=== PATIENT | female | born 1940 | race Caucasian/White ===

== ENCOUNTER 2021-11-14 12:03 | Emergency (ER) | payer MEDICARE, SELFPAY ==
[2021-11-14 12:04] VITALS: BP 141/95; PULSE 64; RESP 15; TEMP 35.8; O2SAT 100; BMI 32.8
--- NOTE | 2021-11-14 12:11 | NURSING ---
NO OLD EKGS
--- NOTE | 2021-11-14 12:29 | ED.VIS.CHEST ---
HPI History of Present Illness Chief Complaint: Chest Pain Informant: patient Onset/Context/Timing Onset: Days (3-4) Activity at onset: gradual Timing: Intermittent Quality: Positive for Tightness Location: Substernal, Right Chest and Left Chest Worsened By: Nothing Relieved By: Nothing Associated Symptoms: Positive for Lightheadedness; Negative for Nausea, Vomiting, Diaphoresis, Dyspnea, Cough, Fever, Acid Reflux and Palpitations Narrative Narrative: Patient presents with chest pain that has been intermittent over the last 3 to 4 days. Patient states it feels like a tightness across her chest. Patient states that sometimes it goes across her upper abdomen as well. Patient states nothing makes it better nothing makes it worse. Patient thinks this may be anxiety related to the recent of her . Patient states she has some intermittent lightheadedness. Patient denies any nausea or vomiting. Patient denies any diaphoresis. Patient denies any shortness of breath. [facility] Medical History (Updated 11/14/21 @ 15:[address] David Rojas DO) Hypertension Allergy/AdvReac Type Severity Reaction Status Date / Time No Known Allergies Allergy Verified 11/14/21 12:06 Surgical History (Updated 11/14/21 @ 12:32 by Nestor Ignacio) History of tonsillectomy Hx of cataract surgery Social History Smoking Status: Never smoker ROS ROS ED Constitutional Constitutional ED: Denies chills or fever(s) Eyes Eyes: Denies blurry vision or change in vision ENT ENT ED: Reports rhinorrhea; Denies sore throat Cardiovascular Cardiovascular: Reports chest pain; Denies palpitations Respiratory/Chest Respiratory/Chest: Denies cough or dyspnea Gastrointestinal Gastrointestinal: Reports nausea; Denies abdominal pain or vomiting Genitourinary Genitourinary ED: Denies dysuria or hematuria Musculoskeletal Musculoskeletal: Reports back pain; Denies neck pain Integumentary Denies abscess or rash Neurologic Neurologic: Denies headache(s) or weakness Allergic/Immunologic Allergic/Immunologic ED: Denies mouth swelling or urticaria EXAM Physical Exam Const Vital Signs: 11/14/21 12:04 11/14/21 12:31 11/14/21 12:34 Temperature 96.5 F L 98.4 F Temperature Source Temporal Temporal Pulse Rate 64 57 L Respiratory Rate 15 14 Blood Pressure 141/95 H 154/84 H Blood Pressure Mean 110 107 Pulse Ox 100 98 Oxygen Delivery Method Room Air Room Air Room Air 11/14/21 13:03 11/14/21 14:00 Temperature 98.4 F 98.4 F Temperature Source Temporal Temporal Pulse Rate 62 78 Respiratory Rate 18 12 Blood Pressure 133/92 H 145/92 H Blood Pressure Mean 105 109 Pulse Ox 100 98 Oxygen Delivery Method Room Air Room Air Positive well nourished, well developed and obese General Appearance ED: well developed Nutritional Appearance: obese HEENT normocephalic and atraumatic Eyes PERRL and EOMs intact bilaterally Neck supple and no JVD Chest Wall palpation of chest normal Resp normal respiratory effort and clear to auscultation bilaterally Effort and Inspection: Negative for respiratory distress Cardio regular rate, regular rhythm and no murmurs GI normal to inspection, nondistended, normoactive bowel sounds, soft to palpation, non-tender and non-distended Extremity normal to inspection General Extremety ED: Negative for edema or tenderness General Extremity: Negative for edema Neuro oriented x3, CN's II-XII intact bilaterally and no sensory deficits noted Sensorium / Orientation: awake and alert Motor Exam: strength 5/5 throughout Psych mental status grossly normal Heart Score History: Slightly/Non-Suspicious ECG: Normal Age: >/= 65 years Risk Factors: 1 or 2 Risk Factors Troponin: </= Normal Limit Score: 3 MDM MDM MDM Narrative Medical decision making narrative: EKG was obtained. On my interpretation, it showed a sinus bradycardia with a rate of 57. WI interval, QRS interval, and QTc intervals were all normal. There is left axis deviation at -31. There are no acute ST or T wave changes. Portable 1 view chest x-ray was obtained. On my interpretation, lung feliz are clear. There is normal cardiac silhouette. Bony thorax is normal. There is no acute process noted. Radiologist also interpreted the x-ray and agrees. CBC was obtained and was within normal limits. Basic metabolic profile was essentially within normal limits. Initial high-sensitivity troponin was normal at six. 2-hour repeat high-sensitivity troponin was normal at six. Patient was advised of her findings. Patient has a HEART score of three. Patient was advised that this is low risk for acute cardiac event. Patient was instructed to follow-up with her primary care physician in 5 to 7 days for further evaluation. Patient understood and was agreeable with the plan. All questions were answered. Lab Data Attestation: I reviewed the patient's lab results. Labs: Laboratory Results - last 24 hr 11/14/21 11/14/21 11/14/21 12:35 12:35 14:43 WBC 7.9 RBC 4.58 Hgb 14.6 Hct 43.5 MCV 95.0 MCH 31.9 MCHC 33.6 RDW Std Deviation 44.9 H RDW Coeff of Onur 12.9 Plt Count 307 MPV 9.5 Immature Gran % (Auto) 0.500 Neut % (Auto) 58.8 Lymph % (Auto) 27.9 Crawford % (Auto) 10.0 Eos % (Auto) 2.3 Baso % (Auto) 0.5 Absolute Neuts (auto) 4.6 Absolute Lymphs (auto) 2.20 Nucleated RBC % 0 Sodium 141 Potassium 3.6 Chloride 107 Carbon Dioxide 28.0 Anion Gap 6 BUN 17 Creatinine 1.08 H Estim Creat Clear Calc 34.94 Est GFR (MDRD) Af Amer 63 Est GFR (MDRD) Non-Af 52 L BUN/Creatinine Ratio 15.7 Glucose 97 Calcium 9.3 Troponin I High Sens 6 6 Radiography Chest X-Ray - ED: 1 View, Read by ED Physician, Read by Radiologist and Normal Diagnostic Testing: Clinical Impression(s) from Imaging Studies Chest X-Ray 11/14/21 12:50 IMPRESSION: Hyperinflation. The lungs are clear. Electronically Signed: Shaheen Devries MD at 13:04 EST , EKG Initial EKG: Attestation: I personally reviewed and interpreted this EKG as follows: Interpretation: No Acute Injury Pattern and Sinus Bradycardia (57) Comments: Left axis deviation Discharge Plan Triage Chief Complaint: Chest Pain ED Provider: David Rojas Dx/Rx/DC Orders Clinical Impression: Chest pain Instructions: ED Chest Pain, Uncertain Cause Primary Care Provider: Mony Parra Referrals: Mony Parra MD [Primary Care Provider] - 5-7 Days Disposition Disposition: Home, Self Care
[2021-11-14 12:31] VITALS: BP 154/84; PULSE 57; RESP 14; TEMP 36.9; O2SAT 98
--- NOTE | 2021-11-14 12:34 | EKG12_ITS ---
Test Reason : CHEST PRESSURE Blood Pressure : / mmHG Vent. Rate : 057 BPM Atrial Rate : 057 BPM P-R Int : 174 ms QRS Dur : 094 ms QT Int : 446 ms P-R-T Axes : 048 -31 019 degrees QTc Int : 434 ms Sinus bradycardia Left axis deviation Abnormal ECG Confirmed by CASSIE FERNANDEZ, [place] ([id number]), film and video editor CASEY CHAMPAGNE ([id number]) on 11/18/2021 1:22:43 PM Referred By: SUNIL/JULISA Confirmed By:COURTNEY MATTHEWS MD
[2021-11-14] MEDS: Aspirin 81 MG TAB.CHEW 324 MG PO (12:37)
[2021-11-14 12:44] LABS: Absolute Neutrophil Count 4.6 X10^3/uL (2.0-7.7); Basophil# 0.04 X10^3/uL; Basophil% 0.5 % (0-1); Eosinophil# 0.18 X10^3/uL; Eosinophils% 2.3 % (0-5); Hematocrit 43.5 % (37-47); Hemoglobin 14.6 g/dL (12.0-15.0); Lymphocyte % 27.9 % (19-41); Mean Corp Hgb Conc 33.6 g/dL (32-36); Mean Corpuscular Hgb 31.9 pg (27.0-32.0); Mean Platelet Vol. 9.5 fl (6.2-12.0); Monocyte# 0.79 X10^3/uL; NRBC Flagged by Analyzer 0 % (0-5); Neutrophil # 4.64 X10^3/uL (2.7-7.7); Neutrophil % 58.8 % (47-70); Platelet Count 307 K/mm3 (150-450); RBC Distribution Width CV 12.9 % (11.6-14.6); RBC Distribution Width SD 44.9 fl (35.1-43.9); Red Blood Count 4.58 M/mm3 (4.2-5.4); White Blood Count 7.9 K/mm3 (4.4-11.0)
--- NOTE | 2021-11-14 12:50 | RAD_ITS ---
STUDY: X-RAY CHEST REASON FOR EXAM: Female, 81 years old. Chest pain TECHNIQUE: Single AP portable view of the chest. COMPARISON: None. FINDINGS: EKG electrodes are seen. Hyperinflation. The lungs are clear. There is no demonstrated pleural abnormality. Normal size heart. Normal mediastinum and humphrey. Normal visualized pulmonary arteries. There is atherosclerotic calcification of the aortic arch with tortuosity. There are diffuse degenerative changes of the visualized thoracic spine. Normal visualized ribs, clavicles, and shoulders. There is no demonstrated abnormality of the visualized soft tissue structures of the upper abdomen. RAD/Chest 1 View (Portable) IMPRESSION: Hyperinflation. The lungs are clear. Electronically Signed: Shaheen Devries MD at 13:04 EST ,
[2021-11-14 13:03] VITALS: BP 133/92; PULSE 62; RESP 18; TEMP 36.9; O2SAT 100
[2021-11-14 13:05] LABS: Anion Gap 6 (5-15); BUN 17 mg/dL (7-18); BUN/Creat Ratio 15.7 RATIO (10-20); Calcium,Total 9.3 mg/dL (8.5-10.1); Chloride 107 mmol/L (98-107); Creatinine, Serum 1.08 mg/dL (0.55-1.02); EST Glomerular Filtration Rate 52 mL/min (>60); Est Glom Filt Rate - Afr Amer 63 mL/min (>60); Estimated Creatinine Clearance 34.94 ml/min; Glucose 97 mg/dL (74-106); Potassium 3.6 mmol/L (3.5-5.1); Sodium Level 141 mmol/L (136-145); Troponin-I HS 6 pg/mL (3.0-54.0)
[2021-11-14 14:00] VITALS: BP 145/92; PULSE 78; RESP 12; TEMP 36.9; O2SAT 98
[2021-11-14 15:08] LABS: Troponin-I HS 6 pg/mL (3.0-54.0)
[2021-11-14 15:19] VITALS: BP 137/87; PULSE 74; RESP 14; O2SAT 95
== END 2021-11-14 15:20 | disposition home or self-care (01) ==
PROVIDERS: Emergency Provider Emergency Medicine; PCP Internal Medicine; Visit Provider Emergency Medicine
DX: R07.9 Chest pain, unspecified (principal); E66.9 Obesity, unspecified; R42 Dizziness and giddiness
CPT/HCPCS: 71045; 80048; 84484; 85025; 93005; 99284; A4216

== ENCOUNTER 2024-12-12 07:17 | Observation (INO) | payer MEDICARE, SELFPAY ==
--- NOTE | 2024-11-08 11:46 | EKG12_ITS ---
Test Reason : PRE OP Blood Pressure : */* mmHG Vent. Rate : 57 BPM Atrial Rate : 57 BPM P-R Int : 176 ms QRS Dur : 94 ms QT Int : 432 ms P-R-T Axes : 56 -20 49 degrees QTcB Int : 420 ms Sinus bradycardia Incomplete right bundle branch block Borderline ECG Confirmed by Man Ng ([id number]), editor department CASEY CHAMPAGNE ([id number]) on 11/09/2024 6:56:00 AM Referred By: Srikanth Pino Confirmed By: Man Ng
[2024-11-08 12:42] LABS: Absolute Lymphocyte Count 2.06 X10^3/uL (0.83-4.51); Absolute Neutrophil Count 4.2 X10^3/uL (2.0-7.7); Basophil# 0.06 X10^3/uL; Basophil% 0.8 % (0-1); Eosinophil# 0.16 X10^3/uL; Eosinophils% 2.2 % (0-5); Hematocrit 42.3 % (37-47); Hemoglobin 13.5 g/dL (12.0-15.0); Lymphocyte # 2.06 X10^3/ul (0.83-4.51); Lymphocyte % 28.8 % (19-41); Mean Corp Hgb Conc 31.9 g/dL (32-36); Mean Corpuscular Hgb 30.1 pg (27.0-32.0); Mean Corpuscular Volume 94.2 fL (81-99); Mean Platelet Vol. 9.7 fl (6.2-12.0); Monocyte# 0.63 X10^3/uL; Monocyte% 8.8 % (0-10); NRBC Flagged by Analyzer 0 % (0-5); Neutrophil # 4.22 X10^3/uL (2.7-7.7); Neutrophil % 59.1 % (47-70); Platelet Count 293 K/mm3 (150-450); RBC Distribution Width CV 13.1 % (11.6-14.6); RBC Distribution Width SD 45.5 fl (35.1-43.9); Red Blood Count 4.49 M/mm3 (4.2-5.4); White Blood Count 7.2 K/mm3 (4.4-11.0)
[2024-11-08 13:22] LABS: Albumin, Serum 3.5 g/dL (3.2-5.0); Anion Gap 9 (5-15); BUN 22 mg/dL (7-18); Calcium,Total 9.6 mg/dL (8.5-10.1); Chloride 106 mmol/L (98-107); EST Glomerular Filtration Rate 57 mL/min (>60); Est Glom Filt Rate - Afr Amer 68 mL/min (>60); Glucose 89 mg/dL (74-106); Potassium 3.8 mmol/L (3.5-5.1); Sodium Level 139 mmol/L (136-145)
[2024-11-08 13:26] LABS: Magnesium 2.4 mg/dL (1.6-2.6)
--- NOTE | 2024-11-08 19:16 | PAT.ANESEVAL ---
Pre-Assessment Diagnosis/Proposed Procedure Planned Operative Procedure(s): ANTERIOR LEFT TOTAL HIP ARTHROPLASTY Anesthesia History Anesthesia History - data analytics analyst: Anesthesia History - data analytics analyst Hx Hospitalization No 11/02/24 14:42 Any Problems With Anesthesia No 11/02/24 14:42 Cholinesterase deficiency No 11/02/24 14:42 You/Your Family Experience No 11/02/24 14:42 fever (hyperthermia) with Relationship Recent Exposure to Contagious Disease Does patient have nerve No 11/02/24 14:42 stimulator Patient instructed to have device shut off --Does patient have Pacemaker or ICD? When Was Last Pacemaker Check QUESTION #4 FULL TEXT: You/Your Family Experience fever (hyperthermia) with Anesthesia Last Oral Intake Last Oral intake: Last Oral Intake NPO since Meds taken in AM with sips of water? Meds patient instructed to take am of surgery PONV PONV - data analytics analyst: PONV - data analytics analyst Female Yes 11/02/24 14:42 HX of Motion Sickness No 11/02/24 14:42 HX of N/V After Surgery No 11/02/24 14:42 Non-Smoker Yes 11/02/24 14:42 Duration of Surgery greater Yes 11/02/24 14:42 than 60 minutes Number of Risk Factors 3 11/02/24 14:42 PONV Score Moderate Risk 11/02/24 14:42 Height & Weight Height & Weight: Anesthesia: Height & Weight Height 5 ft 3 in 11/14/21 12:04 Respiratory Assessment Respiratory Assessment - data analytics analyst: Respiratory Tract Infection Hx - data analytics analyst Hx Respiratory Tract Infection No 11/02/24 14:42 STOP Sleep Apnea STOP Sleep Apnea - data analytics analyst: STOP Sleep Apnea - data analytics analyst Hx Hypertension Yes: CONTROLLED WITH MED/ 11/02/24 14:42 PATIENT STOPPED 1 MED LISINOPRIL Hx Sleep Apnea No 11/02/24 14:42 CPAP BIPAP Do you snore loudly (louder Yes 11/02/24 14:42 than talking or can be heard Do you often feel tired/ No 11/02/24 14:42 fatigued/ sleepy during daytime? Has anyone observed you stop No 11/02/24 14:42 breathing during sleep? STOP Results Positive 11/02/24 14:42 QUESTION #5 FULL TEXT : Do you snore loudly (louder than talking or can be heard through closed doors)? Tobacco Use History Tobacco Use History - data analytics analyst: Tobacco Use History - data analytics analyst Tobacco Use Smoking Status Never smoker 11/02/24 14:42 Hx Tobacco Use No 11/02/24 14:42 Years Smoking Packs Smoked per Day Smoking Cessation Date was within the last 15 years Hx Smoking Cessation Date Hx Smoking Cessation Counseling Hematologic Medial History Hematologic Hx - data analytics analyst: Hematologic Medical Hx - entry level management Hx of Blood Transfusion No 11/02/24 14:42 Hx of Transfusion in last 3 No 11/02/24 14:42 Months Date of Last Transfusion (if within last 3 months) Ever experience any problems No 11/02/24 14:42 with transfusion(s)? Specify any problems Hx of Preganancy in last 3 No 11/02/24 14:42 Months Nurse Filling Out Transfusion DSCHRIBER 11/02/24 14:42 & Questions: Date: 11/02/24 11/02/24 14:42 Time: 14:44 11/02/24 14:42 Patient unable to answer at this time (ie. confused, unrespo /Reproduction History /Reproductive History - data analytics analyst: /Reproductive Hx- data analytics analyst Hx Now No 11/02/24 14:42 Gestational Age (in weeks): EDC: Hx Hx Para Hx Section SAB No 11/02/24 14:42 [facility] Medical History (Updated 11/02/24 @ 16:09 by Marily Chavis) Wears hearing aid Wears glasses Wears dentures Post-menopausal Depression Anxiety Thyroid disease Ambulates with cane Arthritis Bladder disease History of renal disease Low iron High cholesterol Back pain Migraine headache Injury of head and neck Heartburn Non-smoker Leg cramps History of pain when walking History of edema Hypertension Home Medications ?Medication ?Instructions ?Recorded ?Last Taken ?Type B-complex with vitamin C 1 tab PO DAILY 11/02/24 Unknown History aspirin 81 mg tablet,delayed 81 mg PO DAILY 11/02/24 Unknown History release (Adult Aspirin Regimen) atenolol 50 mg tablet 50 mg PO DAILY 11/02/24 Unknown History calcium 333 mg 1 tab PO DAILY 11/02/24 Unknown History (carbonate)-magnesium 133 mg (oxide)-zinc 5 mg tablet cholecalciferol (vitamin D3) 25 5,000 unit PO DAILY 11/02/24 Unknown History mcg (1,000 unit) tablet (Vitamin D3) levothyroxine 75 mcg tablet 75 mcg PO DAILY disorder of 11/02/24 Unknown History thyroid gland niacin 500 mg tablet 500 mg PO DAILY 11/02/24 Unknown History Allergy/AdvReac Type Severity Reaction Status Date / Time atorvastatin AdvReac Intermediate Pain in Verified 11/02/24 14:22 joints Surgical History (Updated 11/02/24 @ 14:56 by Marily Chavis) Hx of colonoscopy Hx of right cataract extraction Hx of left cataract extraction History of tonsillectomy Social History Smoking Status: Never smoker Audit: Pertinent Findings Pertinent Findings EKG Perinent findings: November 08, 2024. Sinus bradycardia at 57 bpm. Incomplete right bundle branch block. Compared to EKG of November 14, 2021 nonspecific T wave abnormality is no longer seen in the inferior leads. Recommendation Anesthesia Recommendation Anesthesia recommendation: OPTIMIZED for anesthesia
--- NOTE | 2024-11-23 13:07 | HP.PCM_ITS ---
History and Physical Patient Name: Natalie PompaB: 1940 From: DATE OF PRE-OPERATIVE EXAM: 11/18/2024 DATE OF SURGERY: 11/28/2024 SCHEDULED PROCEDURE: Direct anterior left total hip arthroplasty. HISTORY OF PRESENT ILLNESS: The patient presents with chronic hip pain that has been bothering them forever. They have been using a cane consistently for a couple of years. The pain is located in the front part of the thigh, knee, and groin area. The patient reports nocturnal pain that wakes them up at night. They experience difficulty putting on socks and shoes due to pain, but manage to do so. The patient rates their current pain as 6/10, with pain increasing towards the end of the day with more activity. Patient describes the pain as intermittent, aching, and stabbing. Stairs are particularly problematic, and the patient reports being unable to go up or down stairs. Patient states that walking and standing make the pain worse. Patient states that sitting and resting the leg help to alleviate pain. The patient has been using ibuprofen for pain relief, which they believe helps when anticipating increased activity. Patient states that she is no longer able to dress herself and do housework without difficulty due to the left knee. Patient states that she has tried rest, heat, and oral medications such as ibuprofen with help. Patient states that she has tried weight loss, and home exercises with no help. Patient states that she has lost 50 pounds. Patient denies any previous surgery on the affected joint. The patient has a history of severe hip arthritis. They live alone and are unable to use stairs, but manage to live independently, handling their own cooking and cleaning. The patient reports previously being able to walk a quarter-mile to get mail last summer, but with difficulty. They experience pain with weight- bearing, hip flexion, and internal rotation. Despite the pain, the patient lives independently and manages their own cooking and cleaning. They have been using a cane consistently for a couple of years to assist with mobility. Patient maintains that she would like to maintain her independence and independent living as long as possible. REVIEW OF SYSTEMS: Review Of Systems: Constitutional: Denies change in appetite, fever and weight change. Cardiovasular: Denies chest pain, heart murmur and irregular heartbeat. Respiratory: Denies cough, pneumonia, shortness of breath, tuberculosis and wheezing. Gastrointestinal: Denies constipation, diarrhea, heartburn, nausea, rectal itching, bloody stools and vomiting. Musculoskeletal: Denies leg swelling, pain, trouble walking and weakness. Skin: Denies Raynaud's, history of shingles and tattoo. Neurological: Denies ambulatory dysfunction, dizziness, numbness/tingling and tremor. Psychiatric: Denies anxiety, insomnia and stress. Hematologic/Lymphatic: Denies anemia, bleeding/bruising tendency and past transfusion. Reviewed, no changes. PAST MEDICAL HISTORY: Advance Care Plan: Other Directive, LIVING WILL Other Directive, POA Effective Date: 10/14/2024 Past Medical History: Medical Problems: Arthritis, Hard of Hearing, High Blood Pressure, Thyroid Disease Accidents: None Surgical Hx: Cataracts, Tonsillectomy Anesthesia Complications: None Assistive Devices: Dentures, Cane, Glasses, Hearing Aid, Walker Reviewed, no changes. SOCIAL HISTORY: Social History: Occupation: Retired.Work Status: Retired. Personal Habits: Cigarette Use: Never Smoked Cigarettes.Smokeless Tobacco: Never Used Smokeless Tobacco.E-Cigarette Use: Never used.Alcohol: Occasionally.Drug Use: Denies Use.Enjoy Exercising: Exercises 1-3 x/month. Reviewed, no changes. VITALS: Ht: 63 Wt: 160lb Wt [id number] BMI: 28.3 BP: 116/70 Pulse: 64 Resp: 14 T: 98.2 T: 36.8C Pain Level: 7 O2SatR: 100 ALLERGIES: Atorvastatin MEDICATIONS: Lisinopril-Hydrochlorothiazide 20-12.5 mg 1 by mouth every day, Atenolol 50 mg 1 by mouth every day, Aspirin 81 81 mg 1 pill 2x/day by mouth, Niacin 500 mg one per day, B Complex/Viamin C one daily, Vitamin D3 Adult Gummies 25 mcg (1000 Ut) 2 tablets a day, Levothyroxine Sodium 75 mcg once a day PRE-OP EXAM: General appearance:NORMAL Other: Eyes: Conjunctivae and lids: NORMAL Pupils: ERR Ears, Nose, Mouth, and Throat: NORMAL Other: Inspection of lips, teeth and gums: NORMAL Other: Neck: Examination of neck: no masses noted. Respiratory: Assessment of respiratory effort: NORMAL Other: Auscultation of lungs: clear to auscultation no wheezes, rhonchi or rales. Cardiovascular: Auscultation of heart: regular rate and rhythm, no murmurs, gallops or rubs. Exam of carotid arteries: NORMAL Other: Gastrointestinal: Exam of abdomen: soft, nontender, nondistended bowel sounds present. Lymphatic: Palpation of nodes in neck: NORMAL Other: Palpation of nodes in Axillae: NORMAL Other: Neurological: see below Psychiatric: Orientation to time, place and person: NORMAL Other: Mood and affect: NORMAL Other: PHYSICAL EXAMINATION: General: Patient uses a cane for ambulation - Gait: Patient experiences pain when putting weight on the affected side while walking - Left Hip: Inspection: Body noted over the left greater trochanter Alignment: 15-degree hip flexion contracture Stability: N/A ROM: Flexion limited to 90 degrees, External rotation to 30 degrees, Internal rotation to neutral Special tests: - Obligatory external rotation with hip flexion - Passive internal rotation recreates pain - Leg lengths: Equal bilaterally IMAGING STUDIES: Complete series of the left hip with AP pelvis, AP hip and crossfire lateral reviewed today reveal joint space narrowing, subchondral sclerosis and o steophyte formation consistent with severe stage IV [id number] erosive osteoarthritis IMPRESSION: 1. Hypertension. 2. Hyperlipidemia. 3. Diverticulosis. 4. Stasis dermatitis of lower extremity due to chronic peripheral vascular hypertension. 5. Primary osteoarthritis of left hip. PLAN: The surgeon did discuss and review all treatment options with the patient including surgical versus nonsurgical. At this time the patient does wish to proceed with the above-stated procedure. Potential risks benefits and complications of the procedure were discussed and reviewed with the patient including but not limited to , infection, nerve and blood vessel damage, persistent pain, numbness, tingling, paresthesias, blood clot, pulmonary embolism, in the requirement for possible further surgery. Patient expressed full understanding. Has no further questions for the doctor. Does agree to proceed with the above-stated procedure, and has signed the appropriate surgery consent form. DVT prophylaxis: Patient will be on aspirin 81 mg 2 times per day until 4 weeks postoperatively. Patient denies history of DVT, PE. Patient will also be wearing JUSTA hose for 2 weeks postoperatively. Pain medications: Patient will be taking Tylenol 1000 mg every 8 hours taking no more than 3000 mg in 24 hours. Patient will then be on oxycodone as needed for pain control. Patient will be on famotidine for 30 days postoperatively. Patient will be on senna as needed for postoperative constipation. No NSAIDs due to GFR of 57. ___ I have re-examined the patient. There are no clinical changes since date of exam. ___ See progress notes for changes. ___ Dictated on admission Date: Time: Signature:
[2024-12-12] VITALS (17 sets, daily range): BP systolic 125–163; BP diastolic 63–100; PULSE 57–72; RESP 16; TEMP 36.1–37.3; O2SAT 91–100; BMI 26.9
[2024-12-12 10:16] LABS: Bedside Glucose 90 mg/dL (74-106)
[2024-12-12] MEDS: Magnesium 1 GM over 15 mins IV (10:21)
[2024-12-12] MEDS: Lactated Ringers 1,000 ML 999 ML IV ×2 (10:21→14:33)
[2024-12-12] MEDS: Acetaminophen 500 MG Tablet 1000 MG PO ×2 (10:25→21:01)
[2024-12-12] MEDS: Gabapentin 600 MG Tablet PO (10:25)
--- NOTE | 2024-12-12 10:51 | PCM.PRE.AN2 ---
ASA Classification* ASA Classification ASA Classification: 2 Assessment & Plan Anesthesia* Anesthesia Assessment Anesthesia Assessment: Discussed sedation and/or anesthesia options, risks, benefits, and alternatives with patient/parents/legal guardian/POA. Questions invited. The patient/parents/legal guardian/POA seems to understand and agrees to proceed with anesthesia plan. Reviewed the physical assessment, medical history, allergy history and patient home medications list prior to surgery/procedure/anesthetic and documented any changes. Performed airway and anesthesia risk assessments. Anesthesia Type Anesthesia Type: Spinal History Source History Obtained from:: Patient and Chart Anesthesia Focused Assessment* Temperature: 99.1 F Pulse Rate: 58 Blood Pressure: 156/82 Respiratory Rate: 16 Pulse Ox: 99 Oxygen Delivery Method: Room Air Airway Assessment Mouth opens: >3 cm Mallampati Score: II Teeth Condition: Dentures (full upper) and Missing (lower missing. Teeth that are her own are intact and secure. ) Neck Range of motion (ROM): Full ROM Focused Labs Anesthesia Preop lab: CBC WBC 7.2 K/mm3 (4.4-11.0) 11/08/24 12:16 11/08/24 RBC 4.49 M/mm3 (4.2-5.4) 11/08/24 12:16 11/08/24 Hgb 13.5 g/dL (12.0-15.0) 11/08/24 12:16 11/08/24 Hct 42.3 % (37-47) 11/08/24 12:16 11/08/24 Plt Count 293 K/mm3 (150-450) 11/08/24 12:16 11/08/24 CHEMISTRY Potassium 3.8 mmol/L (3.5-5.1) 11/08/24 12:16 11/08/24 Sodium 139 mmol/L (136-145) 11/08/24 12:16 11/08/24 Magnesium 2.4 mg/dL (1.6-2.6) 11/08/24 12:16 11/08/24 BUN 22 mg/dL (7-18) H 11/08/24 12:16 11/08/24 Creatinine 1.00 mg/dL (0.55-1.02) 11/08/24 12:16 11/08/24 Glucose 89 mg/dL (74-106) 11/08/24 12:16 11/08/24 POC Glucose 90 mg/dL (74-106) 12/12/24 09:57 12/12/24 TSH 7.280 uIU/mL (0.358-3.740) H 11/08/24 12:16 11/08/24 COAG Pre-Assessment Diagnosis/Proposed Procedure Planned Operative Procedure(s): ANTERIOR LEFT TOTAL HIP ARTHROPLASTY Anesthesia History Anesthesia History - cushion filler: Anesthesia History - cushion filler Hx Hospitalization No 12/09/24 09:13 Any Problems With Anesthesia No 12/09/24 09:13 Cholinesterase deficiency No 12/09/24 09:13 You/Your Family Experience No 12/09/24 09:13 fever (hyperthermia) with Relationship Recent Exposure to Contagious No 12/12/24 10:26 Disease Does patient have nerve No 12/09/24 09:13 stimulator Patient instructed to have device shut off --Does patient have Pacemaker No 12/12/24 10:26 or ICD? When Was Last Pacemaker Check QUESTION #4 FULL TEXT: You/Your Family Experience fever (hyperthermia) with Anesthesia Last Oral Intake Last Oral intake: Last Oral Intake NPO since 22:00 12/12/24 10:26 Meds taken in AM with sips of Yes 12/12/24 10:26 water? Meds patient instructed to atenolol, levothyroxine 12/12/24 10:26 take am of surgery PONV PONV - cushion filler: PONV - cushion filler Female Yes 12/09/24 09:13 HX of Motion Sickness No 12/09/24 09:13 HX of N/V After Surgery No 12/09/24 09:13 Non-Smoker Yes 12/09/24 09:13 Duration of Surgery greater Yes 12/09/24 09:13 than 60 minutes Number of Risk Factors 3 12/09/24 09:13 PONV Score Moderate Risk 12/09/24 09:13 Height & Weight Height & Weight: Anesthesia: Height & Weight Height 5 ft 5 in 12/12/24 10:26 Weight: 73.4 kg 12/12/24 10:26 Body Mass Index (BMI) 26.9 12/12/24 10:26 Respiratory Assessment Respiratory Assessment - cushion filler: Respiratory Tract Infection Hx - cushion filler Hx Respiratory Tract Infection No 12/09/24 09:13 Any additional information?: Yes Hx Respiratory Tract Infection: Yes (Runny nose several days ago with nasal drainage, patient states its better.) STOP Sleep Apnea STOP Sleep Apnea - cushion filler: STOP Sleep Apnea - cushion filler Hx Hypertension Yes: CONTROLLED WITH MED/ 12/09/24 09:13 PATIENT STOPPED 1 MED LISINOPRIL Hx Sleep Apnea No 12/09/24 09:13 CPAP BIPAP Do you snore loudly (louder Yes 12/09/24 09:13 than talking or can be heard Do you often feel tired/ No 12/09/24 09:13 fatigued/ sleepy during daytime? Has anyone observed you stop No 12/09/24 09:13 breathing during sleep? STOP Results Positive 12/09/24 09:13 QUESTION #5 FULL TEXT : Do you snore loudly (louder than talking or can be heard through closed doors)? Tobacco Use History Tobacco Use History - cushion filler: Tobacco Use History - cushion filler Tobacco Use Smoking Status Never smoker 12/09/24 09:13 Hx Tobacco Use No 12/09/24 09:13 Years Smoking Packs Smoked per Day Smoking Cessation Date was within the last 15 years Hx Smoking Cessation Date Hx Smoking Cessation Counseling Hematologic Medial History Hematologic Hx - cushion filler: Hematologic Medical Hx - road cleaner Hx of Blood Transfusion No 12/09/24 09:13 Hx of Transfusion in last 3 No 12/09/24 09:13 Months Date of Last Transfusion (if within last 3 months) Ever experience any problems No 12/09/24 09:13 with transfusion(s)? Specify any problems Hx of Preganancy in last 3 No 12/09/24 09:13 Months Nurse Filling Out Transfusion JZOLLINGE 12/09/24 09:13 & Questions: Date: 12/09/24 12/09/24 09:13 Time: 09:13 12/09/24 09:13 Patient unable to answer at this time (ie. confused, unrespo /Reproduction History /Reproductive History - cushion filler: /Reproductive Hx- cushion filler Hx Now No 12/09/24 09:13 Gestational Age (in weeks): EDC: Hx Hx Para Hx Section SAB No 12/09/24 09:13 Active Medications Active Medications: Current Medications Generic Name Dose Route Start Last Admin Trade Name Freq PRN Reason Stop Dose Admin Acetaminophen 1,000 mg 12/12/24 11:15 12/12/24 10:25 Acetaminophen 500 Mg Tablet PO 12/12/24 11:16 1,000 mg X1 ONE Administration Acetaminophen 1,000 mg 12/12/24 14:00 Acetaminophen 500 Mg Tablet PO Q8 TRISH Aspirin 81 mg 12/12/24 10:00 Aspirin 81 Mg Tab.Chew PO BID TRISH Sodium Chloride 77.4 ml/ 0 ml 12/12/24 11:15 Ropivacaine 200 mg/ OPERA.SITE 12/12/24 11:16 Epinephrine HCl 0.6 mg/ X1 ONE Ketorolac Tromethamine 30 mg/ Morphine Sulfate 5 mg Dexamethasone Sodium Phosphate 10 mg 12/12/24 11:15 Dexamethasone 10 Mg/Ml Vial IV 12/12/24 11:16 X1 ONE Enteral Nutritional Formula 237 ml 12/12/24 08:00 Ensure Surgery 237 Ml Liquid PO TIDCM [facility] Famotidine 20 mg 12/12/24 10:00 Famotidine 20 Mg Tablet PO DAILY [facility] Gabapentin 600 mg 12/12/24 11:15 12/12/24 10:25 Gabapentin 600 Mg Tablet PO 12/12/24 11:16 600 mg X1 ONE Administration Lactated Ringer's 1,000 mls @ 999 mls/hr 12/12/24 11:15 12/12/24 10:21 IV 12/12/24 12:15 999 mls/hr .Q1H1M TRISH Administration Cefazolin Sodium 2 gm/ N/A 20 mls @ 400 mls/hr 12/12/24 11:15 IV 12/12/24 11:17 PREOP ONE Tranexamic Acid 1,000 mg/ 110 mls @ 660 mls/hr 12/12/24 11:15 Sodium Chloride IV 12/12/24 11:24 X1 ONE Tranexamic Acid 1,000 mg/ 110 mls @ 660 mls/hr 12/12/24 11:15 Sodium Chloride IV 12/12/24 11:24 X1 ONE Lactated Ringer's 1,000 mls @ 999 mls/hr 12/12/24 11:15 IV 12/12/24 12:15 .Q1H1M TRISH Lactated Ringer's 1,000 mls @ 125 mls/hr 12/12/24 11:15 IV 12/12/24 19:14 .Q8H TRISH Magnesium Sulfate 1 gm/ 102 mls @ 408 mls/hr 12/12/24 11:15 12/12/24 10:21 Dextrose IV 12/12/24 11:29 408 mls/hr X1 ONE Administration Cefazolin Sodium 1 gm in 50 mls @ 150 mls/hr 12/12/24 14:00 IV 12/12/24 22:19 Q8 TRISH Insulin Human Lispro 1 - 6 unit 12/12/24 11:15 Insulin Lispro 100 Unit/Ml Insuln.Pen SC Q4H PRN PRN BG>/= 180, SEE PROTOCOL Protocol Morphine Sulfate 2 - 4 mg 12/12/24 07:17 Morphine 2 Mg/Ml Syringe IV Q2H PRN PRN Pain Score 4-10 Ondansetron HCl 4 mg 12/12/24 07:17 Ondansetron 4 Mg/2 Ml Vial IV Q8H PRN PRN NAUSEA Oxycodone HCl 5 - 10 mg 12/12/24 07:17 Oxycodone 5 Mg Tablet PO Q4H PRN PRN Pain Score 4-10 Promethazine HCl 12.5 mg 12/12/24 07:17 Promethazine 25 Mg/Ml Syringe IM Q6H PRN PRN NAUSEA/VOMITING Protocol Senna/Docusate Sodium 2 tablet 12/12/24 10:00 Senna/Docusate Sodium 1 Tablet PO BID TRISH PFSH Medical History Extraction of tooth needed Wears hearing aid Wears glasses Wears dentures Post-menopausal Depression Anxiety Thyroid disease Ambulates with cane Arthritis Bladder disease History of renal disease Low iron High cholesterol Back pain Migraine headache Injury of head and neck Heartburn Non-smoker Leg cramps History of pain when walking History of edema Hypertension Home Medications ?Medication ?Instructions ?Recorded ?Last Taken ?Type B-complex with vitamin C 1 tab PO DAILY 11/02/24 12/11/24 History aspirin 81 mg tablet,delayed 81 mg PO DAILY 11/02/24 12/04/24 History release (Adult Aspirin Regimen) atenolol 50 mg tablet 50 mg PO DAILY 11/02/24 12/12/24 History calcium 333 mg 1 tab PO DAILY 11/02/24 12/11/24 History (carbonate)-magnesium 133 mg (oxide)-zinc 5 mg tablet cholecalciferol (vitamin D3) 25 5,000 unit PO DAILY 11/02/24 12/11/24 History mcg (1,000 unit) tablet (Vitamin D3) levothyroxine 75 mcg tablet 75 mcg PO DAILY disorder of 11/02/24 12/12/24 History thyroid gland niacin 500 mg tablet 500 mg PO DAILY 11/02/24 12/11/24 History Allergy/AdvReac Type Severity Reaction Status Date / Time atorvastatin AdvReac Intermediate Pain in Verified 12/12/24 10:19 joints Surgical History Hx of colonoscopy Hx of right cataract extraction Hx of left cataract extraction History of tonsillectomy Social History Smoking Status: Never smoker Review of Systems (Anesthesia) ROS Narrative System reviewed and no additional complaints, except as documented.
--- NOTE | 2024-12-12 11:15 | FEM._PTH ---
PATIENT: LISSA CHENG LOC: [facility] U#:[id number] AGE/SX: 84/F ROOM: CA305 RE12/12/[address]: Dr. Srikanth Pino MD : 1940 BED: 1 DIS: 12/14/2024 SPEC #: [id number] RECD: 12/13/24 10:18 STATUS: NEHEMIAS PASCUAL #: [id number] ELIANE: 12/12/24 11:[address]: Srikanth Pino DEPT: SURGICAL PATHOLOGY RECD BY: Chris Vasques ENTERED: 12/13/24 10:18 SP TYPE: FEM HEAD OTHR DR: MD Dr. Zaira Morelos MD Tissues: Hip, NOS Procedures: Decalcification bone/plaque Surgery Specimen Level III HEADER OPERATION: ERAS, anterior left total arthroplasty PRE-OP DIAGNOSIS: Left hip osteoarthritis TISSUE SUBMITTED: A- Left hip bone MICROSCOPIC DIAGNOSIS A. Femoral head, left, total hip arthroplasty: * Articular bone with reactive/degenerative changes. MICROSCOPIC DESCRIPTION Slides are reviewed. GROSS DESCRIPTION A. Received in fixative is one container labeled with the patient's name and designated Left hip bone. The specimen consists of a portion of a femoral head measuring 4.7 x 4.7 x 4cm. The cartilage on the articular surface shows roughening, eburnation. Also present in the container are multiple fragments of bone measuring in aggregate 10 x 8 x 3.5cm. Process Control Technician section submitted after decalcification. 12/13/2024 CPT:47587,28478
[2024-12-12] MEDS: Cefazolin 2 GM in Syringe 10 ML IV (11:56)
[2024-12-12] MEDS: TXA 1000mg in NS100 100ml (IVPB at Incision) 660 MG IV (12:10)
[2024-12-12] MEDS: dexAMETHasone 10 MG/ML Vial IV (12:30)
--- NOTE | 2024-12-12 12:45 | RAD_ITS ---
PROCEDURE: HIP, UNI W/ PELVIS 2-3 VIEWS 12/12/2024 REASON FOR EXAM: TOTAL HIP ANTERIOR APPROACH LT TECHNIQUE: Intraoperative fluoroscopy with 3 spot views COMPARISON: None. FINDINGS: Fluoroscopy time 9.8 seconds Total dose 1.29 mGy Status post left hip replacement left femoral prosthesis exchange appears anatomic alignment without fracture or dislocation identified. RAD/HIP, UNI W/ Pelvis 2-3 Views IMPRESSION: Intraoperative fluoroscopy with spot views as above. Reading Location: [id number]
[2024-12-12] MEDS: TXA 1000mg in NS100 100ml (IVPB at Closure) 660 MG IV (13:06)
[2024-12-12] MEDS: JPS (Morphine 10mg/ml) OPERA.SITE (13:07)
--- NOTE | 2024-12-12 13:31 | OP.PCM_ITS ---
Operative Report (Standard) Operative Information Date of Procedure: 12/12/24 Pre-Operative Diagnosis: Left hip primary osteoarthritis Post-Operative Diagnosis: Left hip primary osteoarthritis Surgery/Procedure Performed: Left direct anterior minimally invasive total replacement financial administrative assistant: Yes Perforator Loader: Silvia Pedro Tasks completed by cutter first: Opening & closing, Implanting device, Hemostasis: Electrocautery, Retracting and Other (Reducing and dislocating prosthetic hip trials) Additional medical laboratory assistant?: No Type of Anesthesia: Spinal RN Documented Start/Stop Times: Operation Date: 12/12/24 11:15 Case Time Into Pre-Op 12/12/24 09:40 Anesthesia Start 12/12/24 11:56 Into Room 12/12/24 11:56 Procedure Start 12/12/24 12:18 Procedure End 12/12/24 13:48 Anesthesia End 12/12/24 13:54 Out of Room 12/12/24 13:54 Procedure Start Time: 12:18 Procedure Stop Time: 13:48 Select all DRAINS/GRAFTS/IMPLANTS that apply: Prosthetic device Prosthetic device details: See body of operative report. Special Medications: Ancef Estimated Blood Loss: 350 mL Fluids Replaced: 1600 mL crystalloid Specimen collected: Yes Description of specimen(s) removed: Bony cuts Description of surgery: Components used: 1. Insignia Aury femoral stem size 3 high offset 2. Aury trident 2 acetabular shell size 52 mm 3. Aury X3 polyethylene knee 4. [place] Biolox delta 36 mm, 0 mm femoral head Brief history operative indications: 84yo female who failed conservative measures for their hip osteoarthritis. X- rays were consistent with osteoarthritis including joint space narrowing, osteophyte formation and subchondral cysts. Total hip replacement was discussed with the patient with risks and benefits including but not limited to blood loss, DVTs, PEs, neurovascular damage, dislocation, general risks of anesthesia including loss of life. Patient demonstrated an understanding medical clearance is obtained the patient was consented for surgery. Procedure: On the date of procedure the patient's left hip was marked in the preoperative area. Patient was then taken back to the operating room where anesthesia assumed control of the C-spine and airway and administered anesthetic. Patient was transferred to the operating table and placed in the supine position. The hips were placed at the break of the bed and a sacral bump was placed. The left lower extremity was then prepped out in a sterile fashion using chlorhexidine while the surgeon scrubbed. The PA was vital in the positioning of the patient. Upon reentering the room the left lower extremity was draped in the standard orthopedic fashion and the incision was marked. A timeout was called and everyone agreed upon the side, the site, the procedure be performed, antibody given, and patient's identity. At this time incision was made through skin, subcutaneous tissue, and fat down to fascia. The fascia was then incised and the TFL was retracted laterally. A retractor was placed on the lateral border of the femoral neck. Attention was directed to the inferior portion of the approach and all crossing vessels were identified and appropriately coagulated. A retractor was then placed on the medial portion of the femoral neck. The anterior capsule was then cleared of all soft tissue and then H shaped capsulotomy was made. The retractors were then placed inside the capsule. The femoral neck was identified and a cleanup cut was made. At this time a power corkscrew was used to remove the femoral head. Attention was then turned toward the acetabulum where the soft tissues were appropriately retracted and the acetabulum was sequentially reamed to 52 mm. A 52 mm cup was then selected and impacted into place. Acetabular liner was impacted into place and locking mechanism was verified. The position of the acetabular cup was then verified under live fluoroscopy. Attention was then turned to the femur. Soft tissue releases on the medial and lateral femoral neck were appropriately done, the leg was externally rotated and lateralized. A Kulkarni retractor was placed medially and proximally to the greater trochanter this allowed appropriate visualization and exposure of the femoral canal. Rongeour was then used to remove excess lateral bone. A canal finder and entry broach were used to open the proximal canal. Once we verified we were down the femoral canal we subsequently broached up to a size 3 high offset femur. The appropriate neck was placed in the previously selected head was trialed with a 0 mm neck. Traction was pulled and the hip was reduced with internal rotation. Once it was appropriately reduced and stability was checked. There was minimal shuck, equal leg lengths and appropriate stability with hyperextension and external rotation as well as with 90? flexion and internal rotation. Fluoroscopy was then also used to verify the position of the comp onents and leg lengths using the contralateral side for comparison. The trial components were then dislocated the proximal femur was again exposed and the components were removed from the wound. The final components were verified and opened. The wound was copiously irrigated out with normal saline. The acetabulum was checked for any residual debris. The final components were placed and impacted. Traction and internal rotation were again used to reduce the hip. After adequate reduction the hip remained stable with appropriate leg lengths. The final components were once again checked with live fluoroscopy and were found to be satisfactory. The wound was then copiously irrigated with normal saline once more, and hemostasis was obtained. Closure was then done using #1 Vicryl runner to close the fascia. A 2-0 vicryl interuppted sutures were used to close the subcutaneous skin. A 3-0 Monocryl and 2-0 nylon sutures were used for final skin closure. A Silverlon dressing was placed. Patient was awakened by anesthesia and [facility] Patient was then transferred to the PACU for recovery. Postoperative plan: Patient will get 24 hours postop antibiotics. Patient will get in-house physical therapy and will be weight-bear as tolerated. Patient will follow up in office in 2 weeks for a wound check and x-rays. Aspirin 81 mg twice daily. Surgical Findings: Stable over the glenoid lengths. Stage IV osteoarthritis. Complications Complications: No Admit VTE Documentation VTE Present on Admission: No VTE Mechan Device Prophylaxis: SCD's and Thigh High JUSTA Hose VTE Pharm Prophylaxis ordered?: Yes
--- NOTE | 2024-12-12 14:00 | RAD_ITS ---
PROCEDURE: HIP MIN 2 VIEWS (PORTABLE) 12/12/2024 REASON FOR EXAM: POST OP TECHNIQUE: Two views left hip, AP pelvis and cross-table lateral COMPARISON: 12/12/2024 FINDINGS: No fracture or dislocation. Status post left hip replacement appears anatomic alignment. Soft tissue air noted. RAD/Hip Min 2 Views (Portable) IMPRESSION: No fracture or dislocation. Status post left hip replacement appears anatomic a lignment. Soft tissue air noted. Reading Location: [id number]
--- NOTE | 2024-12-12 14:03 | PCM.POST.ANE ---
Anesthesia: Postop Eval I Current Vital Signs Temperature: 97.4 F Pulse Rate: 70 Blood Pressure: 132/72 Respiratory Rate: 16 Pulse Ox: 97 Assessment Airway patent: Yes Spontaneous unlabored respirations: Yes nausea: No Vomiting: No Anesthesia Complication: No Fluid Hydration Crystalloid volume administer (ml): 1,600 Total IV fluid infused: 1,600 Progress Note Anesthesia document: Postop Eval 1 completed: Yes
[2024-12-12] MEDS: Lactated Ringers 1,000 ML 125 ML IV (15:40)
--- NOTE | 2024-12-12 16:27 | CON.PCM.HO_ITS ---
HPI Consult Data Date of Consult: 12/12/24 HPI Narrative HPI Narrative: LISSA CHENG, is a 84 F who presents [facility] Medical History Extraction of tooth needed Wears hearing aid Wears glasses Wears dentures Post-menopausal Depression Anxiety Thyroid disease Ambulates with cane Arthritis Bladder disease History of renal disease Low iron High cholesterol Back pain Migraine headache Injury of head and neck Heartburn Non-smoker Leg cramps History of pain when walking History of edema Hypertension Home Medications ?Medication ?Instructions ?Recorded ?Last Taken ?Type B-complex with vitamin C 1 tab PO DAILY 11/02/2411/26 History aspirin 81 mg tablet,delayed 81 mg PO DAILY 11/02/24 0 12/04/24 History release (Adult Aspirin Regimen) atenolol 50 mg tablet 50 mg PO DAILY 11/02/2411/26 History calcium 333 mg 1 tab PO DAILY 11/02/2411/26 History (carbonate)-magnesium 133 mg (oxide)-zinc 5 mg tablet cholecalciferol (vitamin D3) 25 5,000 unit PO DAILY 12/11/24 History mcg (1,000 unit) tablet (Vitamin D3) levothyroxine 75 mcg tablet 75 mcg PO DAILY disorder o f 11/02/24 12/12/24 History thyroid gland niacin 500 mg tablet 500 mg PO DAILY 11/02/24 History Allergy/AdvReac Type Severity Reaction Status Date / Time atorvastatin AdvReac Intermediate Pain in Verified 12/12/24 10:19 joints Surgical History Hx of colonoscopy Hx of right cataract extraction Hx of left cataract extraction History of tonsillectomy Social History Smoking Status: Never smoker Lab / Micro Data 11/08/24 12:16 11/08/24 12:16 Labs: Laboratory Results - last 24 hr 12/12/24 09:57: POC Glucose 90
--- NOTE | 2024-12-12 16:27 | PCM.CONS.GEN ---
Assessment & Plan Assessment/Plan (1) Status post total hip replacement, left: (2) Hypertension: PLAN: Plan Patient is an 84-year-old female who presented to [facility] on 12/12/2024 for planned left total hip replacement. Medicine consulted postoperatively for medical management. 1. Left hip primary osteoarthritis ? Orthopedic surgery primary. S/p left total hip replacement with Dr. Pino on 12/12. Tolerated procedure well, no intraoperative complications. Follow-up postop CBC and BMP. Pain control, DVT prophylaxis and further management per orthopedics. PT/OT/case management consulted. 2. Hypertension ? Hypertensive to the 140s to 150s postoperatively. Okay to resume home atenolol tomorrow. Will order IV hydralazine as needed for SBP greater than 170 as well. 3. Hyperlipidemia ? Continue home niacin. 4. Hypothyroidism ? Continue home Synthroid. DVT prophylaxis: Baby aspirin twice daily per orthopedics Total clinical time spent by myself addressing the patient's medical issues, reviewing all the data, and collaborating with patient's care team: 35 minutes. HPI Consult Data Date of Consult: 12/12/24 HPI Narrative Reason for Consultation: Postoperative medical management HPI Narrative: LISSA CHENG, is a 84 F who presented to [facility] on 12/12/2024 for planned orthopedic procedure. Medicine consulted postoperatively for medical management. Patient had left direct anterior minimally invasive total hip replacement done with Dr. Pino today. Tolerated procedure well, no intraoperative complications noted. Saw patient at bedside this afternoon. Patient was very pleasant and sitting back comfortably in bed, conversing normally and in no acute distress. She denied any hip pain or discomfort currently. Had not been out of bed yet since coming back up to the floor. No other acute concerns at this time. [facility] Medical History Extraction of tooth needed Wears hearing aid Wears glasses Wears dentures Post-menopausal Depression Anxiety Thyroid disease Ambulates with cane Arthritis Bladder disease History of renal disease Low iron High cholesterol Back pain Migraine headache Injury of head and neck Heartburn Non-smoker Leg cramps History of pain when walking History of edema Hypertension Home Medications ?Medication ?Instructions ?Recorded ?Last Taken ?Type B-complex with vitamin C 1 tab PO DAILY 11/02/24 12/11/24 History aspirin 81 mg tablet,delayed 81 mg PO DAILY 11/02/24 12/04/24 History release (Adult Aspirin Regimen) atenolol 50 mg tablet 50 mg PO DAILY 11/02/24 12/12/24 History calcium 333 mg 1 tab PO DAILY 11/02/24 12/11/24 History (carbonate)-magnesium 133 mg (oxide)-zinc 5 mg tablet cholecalciferol (vitamin D3) 25 5,000 unit PO DAILY 11/02/24 12/11/24 History mcg (1,000 unit) tablet (Vitamin D3) levothyroxine 75 mcg tablet 75 mcg PO DAILY disorder of 11/02/24 12/12/24 History thyroid gland niacin 500 mg tablet 500 mg PO DAILY 11/02/24 12/11/24 History Allergy/AdvReac Type Severity Reaction Status Date / Time atorvastatin AdvReac Intermediate Pain in Verified 12/12/24 10:19 joints Surgical History Hx of colonoscopy Hx of right cataract extraction Hx of left cataract extraction History of tonsillectomy Social History Smoking Status: Never smoker ROS Constitutional Constitutional: Denies chills, fatigue, fever(s) or weakness Cardiovascular Cardiovascular: Denies chest pain Respiratory/Chest Respiratory/Chest: Denies shortness of breath at rest Gastrointestinal Gastrointestinal: Denies abdominal pain Musculoskeletal Musculoskeletal: Denies arthralgias or myalgias Physical Exam Const alert, oriented x3, no apparent distress and average body habitus Constitutional Narrative: Pleasant elderly female, mildly fatigued appearing but otherwise sitting back comfortably in bed, conversing normally, in no acute distress. General Appearance: cooperative and comfortable HEENT normocephalic, head/scalp atraumatic, hearing grossly normal bilaterally, nasal mucous membranes and turbinates normal and moist oral mucous membranes Eyes PERRL, EOMs intact bilaterally and conjunctivae normal Neck full ROM Chest inspection of chest normal Resp normal respiratory effort, normal air movement, no use of accessory muscles and clear to auscultation bilaterally Cardio regular rate, regular rhythm, no murmurs and peripheral pulses 2+ throughout GI normal to inspection, nondistended, normoactive bowel sounds, soft to palpation, non-tender and non-distended Back/Spine normal ROM Extremity Extremity Narrative: Left hip with dressing and ice pack in place. Skin no rashes or lesions noted Neuro moves all extremities and no focal motor deficits Speech: speech normal Psych mental status grossly normal Lab / Micro Data 11/08/24 12:16 11/08/24 12:16 Labs: Laboratory Results - last 24 hr 12/12/24 09:57: POC Glucose 90 Charges/Coding Visit Charges Inpatient E&M: 50693 Subs Hosp L2
[2024-12-12] MEDS: Ensure Surgery 237 ML LIQUID PO (16:48)
--- NOTE | 2024-12-12 18:01 | POSTOPAN2_ITS ---
Anesthesia Postop Eval I Sum Postop Eval Completion status Anesthesia document: Postop Eval 1 completed: Yes Anesthesia Postop Eval I Summary Anesthesia Postop Eval I Summary: Anesthesia Postop Eval I: Assessment Summary Airway patent Yes 12/12/24 14:03 [email or web address] Spontaneous unlabored Yes 12/12/24 14:03 [email or web address] [email or web address] respirations Mental status nausea No 12/12/24 14:03 [email or web address] [email or web address] Vomiting No 12/12/24 14:03 [email or web address] Anesthesia Postop Eval I: Fluid Summary Crystalloid volume administer 1,600 12/12/24 14:03 [email or web address] [email or web address] (ml) Colloids volume administered ( ml) Blood Product volume administered (ml) Total IV fluid infused 1,600 12/12/24 14:03 [email or web address] Anesthesia Postop Eval I: Summary Notes Anesthesia Complication No 12/12/24 14:03 [email or web address] Anesthesia Complication Comment: Post-operative progress note Anesthesia: Postop Eval II Evaluation Mental status: Awake and Calm Pain Level: 2 nausea: No Vomiting: No Complications Anesthesia Complication: No
--- NOTE | 2024-12-12 18:01 | PCM.POSTANE2 ---
Anesthesia Postop Eval I Sum Postop Eval Completion status Anesthesia document: Postop Eval 1 completed: Yes Anesthesia Postop Eval I Summary Anesthesia Postop Eval I Summary: Anesthesia Postop Eval I: Assessment Summary Airway patent Yes 12/12/24 14:03 LICENSED PESTICIDE [email or web address] Spontaneous unlabored Yes 12/12/24 14:03 LICENSED PESTICIDE [email or web address] respirations Mental status nausea No 12/12/24 14:03 LICENSED PESTICIDE [email or web address] Vomiting No 12/12/24 14:03 LICENSED PESTICIDE [email or web address] Anesthesia Postop Eval I: Fluid Summary Crystalloid volume administer 1,600 12/12/24 14:03 LICENSED PESTICIDE [email or web address] (ml) Colloids volume administered ( ml) Blood Product volume administered (ml) Total IV fluid infused 1,600 12/12/24 14:03 LICENSED PESTICIDE [email or web address] Anesthesia Postop Eval I: Summary Notes Anesthesia Complication No 12/12/24 14:03 LICENSED PESTICIDE [email or web address] Anesthesia Complication Comment: Post-operative progress note Anesthesia: Postop Eval II Evaluation Mental status: Awake and Calm Pain Level: 2 nausea: No Vomiting: No Complications Anesthesia Complication: No
[2024-12-12] MEDS: Cefazolin 1 GM/50 ML BAG IV (20:30)
[2024-12-12] MEDS: Aspirin 81 MG TAB.CHEW PO (21:00)
[2024-12-12] MEDS: Senna/Docusate Sodium 1 Tablet 2 TABLET PO (21:00)
[2024-12-13] VITALS (7 sets, daily range): BP systolic 118–154; BP diastolic 75–86; PULSE 59–79; RESP 16–18; TEMP 36.4–37.2; O2SAT 94–99
[2024-12-13] MEDS: Cefazolin 1 GM/50 ML BAG IV (04:08)
[2024-12-13] MEDS: oxyCODONE 5 MG Tablet PO ×3 (04:18→19:57)
[2024-12-13] MEDS: Levothyroxine 75 MCG Tablet PO (06:06)
[2024-12-13] MEDS: Acetaminophen 500 MG Tablet 1000 MG PO ×3 (06:06→21:41)
[2024-12-13 06:28] LABS: Absolute Lymphocyte Count 1.56 X10^3/uL (0.83-4.51); Absolute Neutrophil Count 12.9 X10^3/uL (2.0-7.7); Basophil# 0.05 X10^3/uL; Basophil% 0.3 % (0-1); Eosinophil# 0.01 X10^3/uL; Eosinophils% 0.1 % (0-5); Hematocrit 37.9 % (37-47); Hemoglobin 12.2 g/dL (12.0-15.0); Lymphocyte # 1.56 X10^3/ul (0.83-4.51); Lymphocyte % 9.6 % (19-41); Mean Corp Hgb Conc 32.2 g/dL (32-36); Mean Corpuscular Hgb 30.7 pg (27.0-32.0); Mean Corpuscular Volume 95.2 fL (81-99); Mean Platelet Vol. 9.8 fl (6.2-12.0); Monocyte# 1.73 X10^3/uL; Monocyte% 10.6 % (0-10); NRBC Flagged by Analyzer 0 % (0-5); Neutrophil # 12.85 X10^3/uL (2.7-7.7); Neutrophil % 78.7 % (47-70); POSITIVE DIFFERENTIAL YES; Platelet Count 272 K/mm3 (150-450); RBC Distribution Width CV 12.7 % (11.6-14.6); RBC Distribution Width SD 43.7 fl (35.1-43.9); Red Blood Count 3.98 M/mm3 (4.2-5.4); White Blood Count 16.3 K/mm3 (4.4-11.0)
[2024-12-13 06:31] LABS: Differential Indicated SCAN CRITERIA MET
[2024-12-13 06:55] LABS: Anion Gap 9 (5-15); BUN 20 mg/dL (4-19); BUN/Creat Ratio 19.7 RATIO (10-20); Calcium,Total 8.8 mg/dL (7.6-11.0); Carbon Dioxide 23.5 mmol/L (21.0-32.0); Chloride 105 mmol/L (98-108); EST Glomerular Filtration Rate 57 (>60); Estimated Creatinine Clearance 43.52 ml/min (50-250); Glucose 151 mg/dL (70-99); Potassium 3.9 mmol/L (3.3-5.1); Sodium Level 138 mmol/L (133-145)
[2024-12-13 07:10] LABS: Differential Comment SCANNED
[2024-12-13 07:11] LABS: Platelet Estimate ADEQUATE (ADEQ)
[2024-12-13 07:12] LABS: Pathologist Review May foll; Red Cell Morphology NORM C+C NORMAL (NORM C&C)
[2024-12-13] MEDS: Cholecalciferol (Vit D3) 125 MCG CAPSULE (5,000 UNITS) PO (08:26)
[2024-12-13] MEDS: Senna/Docusate Sodium 1 Tablet 2 TABLET PO ×2 (08:26→21:41)
[2024-12-13] MEDS: Niacin SA 500 MG Tablet PO (08:26)
[2024-12-13] MEDS: Famotidine 20 MG Tablet PO (08:26)
[2024-12-13] MEDS: Atenolol 50 MG Tablet PO (08:26)
[2024-12-13] MEDS: Aspirin 81 MG TAB.CHEW PO ×2 (08:26→21:41)
--- NOTE | 2024-12-13 10:06 | CASEMGMT ---
CARMEN HDZ Assessment Face to Face with patient for initial transition planning/care coordination assessment. CARMEN HDZ introduced self and role at [facility], pt voices understanding. Pt is A&Ox4 and is resting comfortably in the chair and is calm. Pt son at bedside. Care providers, pharmacy, and demographics verified. Admitting dx: AB PRICE Strata: 1 PCP: Mony Parra Specialists: Alvarez (Ortho) Preferred Pharmacy: [facility] Insurance: MMO [facility] Prescription Benefit: Yes LNOK: Yoandy Dubon (Son) Living Arrangements: Pt lives alone in a 3 story home with a FFSU. Pt states that she does not go up or downstairs. Pt reports 1 small step to enter the home. Pt also states that her son and daughter live on the same farm in separate homes. ADLs/IADLs: Reports independent Transportation: Self, son. Denies concerns DME: FWW, cane, Rollator, raised toilet seat, grab bars, shower chair, lift chair HHC/SNF: Denies history or needs Pt?s goal: Home today Plan: Anticipate DC home today. Pt states that her son will drive her home and that her friend plans to stay with her at home. Pt states that she will have 24/7 support. Pt denies the need for skilled HHC. Pt states that she is already established with an OP PT appt on with [facility] and denies further concerns or needs at this time. Report given to MS3 CARMEN HDZ. Debra Gonzales RN, CM
--- NOTE | 2024-12-13 10:44 | PCM.PROGNOTE ---
Subjective Subjective Patient seen and examined. She had no complaints. Review of systems is otherwise negative. She is POD 1 for left hip osteoarthritis. Review of systems is otherwise negative. Objective Data Objective Data Vital Signs: Vital Signs Temp Pulse Resp BP Pulse Ox O2 Del Method O2 Flow Rate 97.6 F L 59 L 18 148/78 H 96 Room Air 4 12/13/24 08:24 12/13/24 08:24 12/13/24 08:24 12/13/24 08:24 12/13/24 08:36 12/13/24 08:36 12/12/24 15:30 Oxygen Flow Rate (L/min) 4 Oxygen Delivery Method Room Air Weight: 161 lb 13.109 oz Body Mass Index (BMI) 26.9 Intake & Output: Intake and Output for Last 24 Hours 12/11/24 12/12/24 12/13/24 23:59 23:59 23:59 Intake Total 2892 / 2892 1450 / 1450 Balance 2892 / 2892 1450 / 1450 Lab / Micro Data 12/13/24 05:19 12/13/24 05:19 Labs: Laboratory Results - last 24 hr 12/13/24 05:19: WBC 16.3 H, RBC 3.98 L, Hgb 12.2, Hct 37.9, MCV 95.2, MCH 30.7, MCHC 32.2, RDW Std Deviation 43.7, RDW Coeff of Onur 12.7, Plt Count 272, MPV 9.8, Immature Gran % (Auto) 0.700, Neut % (Auto) 78.7 H, Lymph % (Auto) 9.6 L, [place] % (Auto) 10.6 H, Eos % (Auto) 0.1, Baso % (Auto) 0.3, Absolute Neuts (auto) 12.9 H, Absolute Lymphs (auto) 1.56, Nucleated RBC % 0, Differential Comment SCANNED, Diff Path Review May foll, Platelet Estimate ADEQUATE, RBC Morphology NORM C+C, Sodium 138, Potassium 3.9, Chloride 105, Carbon Dioxide 23.5, Anion Gap 9, BUN 20 H, Creatinine 1.00, Estim Creat Clear Calc 43.52 L, Est GFR (MDRD) Non-Af 57 L, BUN/Creatinine Ratio 19.7, Glucose 151 H, Calcium 8.8 Micro: Microbiology 11/08/24 12:16 Swab (Method) Nasal Screen MRSA/MSSA - Final Radiography Diagnostic Testing: Radiology Impression Hip/Pelvis X-Ray 12/12/24 12:45 IMPRESSION: Intraoperative fluoroscopy with spot views as above. Reading Location: [facility] Hip X-Ray 12/12/24 14:00 IMPRESSION: No fracture or dislocation. Status post left hip replacement appears anatomic alignment. Soft tissue air noted. Reading Location: [facility] Physical Exam Const alert, oriented x3 and no apparent distress General Appearance: cooperative HEENT normocephalic, head/scalp atraumatic, moist oral mucous membranes, oropharynx normal and gingiva normal Eyes PERRL and EOMs intact bilaterally Neck no lymphadenopathy, supple and no JVD Lymph Lymphatic: no lymphadenopathy noted Resp normal respiratory effort, normal air movement and clear to auscultation bilaterally Cardio regular rate, regular rhythm, S1 normal heart sound, S2 normal heart sound and no murmurs GI normal to inspection, nondistended, normoactive bowel sounds, soft to palpation, non-tender and non-distended Extremity normal capillary refill, no clubbing, cyanosis or edema and no calf tenderness Extremity Narrative: intact dressing over left hip General Extremity: no tenderness to palpation of joints or extremities Neuro CN's II-XII intact bilaterally and no focal motor deficits Motor Exam: general weakness Psych thought process normal and cooperative Appearance: appropriate Assessment & Plan Assessment/Plan (1) Status post total hip replacement, left: (2) Hypertension: PLAN: Plan #Left hip osteoarthritis s/p left total hip replacement. Today is POD 1. PT/OT on board. Fall precautions pain management as per primary service. #Hypertension on atenolol. IV hydralazine prn. #Hyperlipidemia: #Hypothyroidism: on synthroid DVT prophylaxis: Aspirin 81mg bid per primary service. Charges/Coding Visit Charges Inpatient E&M: 12045 Subs Hosp L2
--- NOTE | 2024-12-13 11:43 | CASEMGMT ---
Met with patient to complete GUZMAN form. GUZMAN form explained to patient who voiced understanding and signed form. Original form placed in pt?s chart and copy provided to patient. Noemí Guillory, Discharge Planning Asst
--- NOTE | 2024-12-13 12:26 | PCM.PN.ORT ---
Subjective Subjective Patient is sitting comfortably in bedside chair. Patient's son is at bedside. Patient states that she has worked with physical therapy and things went well. Patient states that this time she will have help at home from her son as well as a friend who is staying with her. Patient states that she will have transportation if she goes home. Patient states that she feels comfortable going home. Patient states that earlier she did have a sharp pain in her right ribs that she has had before and chronically appears. This was discussed with medicine. Patient denies any shortness of breath, chest pain, calf pain, fever, chills, dizziness, nausea, vomiting. Patient denies any adverse events overnight. Objective Data Objective Data Vital Signs: Vital Signs Temp Pulse Resp BP Pulse Ox O2 Del Method O2 Flow Rate 97.6 F L 69 18 118/76 98 Room Air 4 12/13/24 12:10 12/13/24 12:10 12/13/24 12:10 12/13/24 12:10 12/13/24 12:10 12/13/24 12:10 12/12/24 15:30 Oxygen Flow Rate (L/min) 4 Oxygen Delivery Method Room Air Weight: 73.4 kg Body Mass Index (BMI) 26.9 Intake & Output: Intake and Output for Last 24 Hours 12/11/24 12/12/24 12/13/24 23:59 23:59 23:59 Intake Total 2892 / 2892 1690 / 1690 Balance 2892 / 2892 1690 / 1690 Lab / Micro Data 12/13/24 05:19 12/13/24 05:19 Labs: Laboratory Results - last 24 hr 12/13/24 05:19: WBC 16.3 H, RBC 3.98 L, Hgb 12.2, Hct 37.9, MCV 95.2, MCH 30.7, MCHC 32.2, RDW Std Deviation 43.7, RDW Coeff of Onur 12.7, Plt Count 272, MPV 9.8, Immature Gran % (Auto) 0.700, Neut % (Auto) 78.7 H, Lymph % (Auto) 9.6 L, [place] % (Auto) 10.6 H, Eos % (Auto) 0.1, Baso % (Auto) 0.3, Absolute Neuts (auto) 12.9 H, Absolute Lymphs (auto) 1.56, Nucleated RBC % 0, Differential Comment SCANNED, Diff Path Review May foll, Platelet Estimate ADEQUATE, RBC Morphology NORM C+C, Sodium 138, Potassium 3.9, Chloride 105, Carbon Dioxide 23.5, Anion Gap 9, BUN 20 H, Creatinine 1.00, Estim Creat Clear Calc 43.52 L, Est GFR (MDRD) Non-Af 57 L, BUN/Creatinine Ratio 19.7, Glucose 151 H, Calcium 8.8 Micro: Microbiology 11/08/24 12:16 Swab (Method) Nasal Screen MRSA/MSSA - Final Radiography Diagnostic Testing: Radiology Impression Hip/Pelvis X-Ray 12/12/24 12:45 IMPRESSION: Intraoperative fluoroscopy with spot views as above. Reading Location: [facility] Hip X-Ray 12/12/24 14:00 IMPRESSION: No fracture or dislocation. Status post left hip replacement appears anatomic alignment. Soft tissue air noted. Reading Location: [facility] Physical Exam Narrative 1. JUSTA hose in place bilaterally. 2. SCDs in place bilaterally. 3. Dressings clean dry and intact. 4. Left hip is soft and supple. 5. Dorsiflexion and plantarflexion are performed without pain or restriction. 6. Sensation intact light touch. 7. Neurovascularly intact. 8. Negative Homans bilaterally. Const alert, oriented x3 and no apparent distress Assessment & Plan Assessment/Plan (1) Status post total hip replacement, left: PLAN: Plan Status post left total hip replacement day 1. 1. DVT prophylaxis: Patient will be on 81 mg aspirin 2 times daily for 4 weeks postoperatively. Patient will also be in JUSTA hose for 2 weeks postoperatively. 2. Pain medications: Patient will be on Tylenol 1000 mg every 8 hours as well as oxycodone as needed for pain control. Patient is not to be on any NSAIDs due to decreased GFR. Patient was educated while on meloxicam do not take any other anti-inflammatory medications. [place]AR[place] report was reviewed and checked in office today. The risk of abuse potential for narcotic pain medication was discussed and reviewed. Patient was advised not to drive a motor vehicle or operate heavy equipment while taking narcotic pain medication. 3. Constipation: Patient was instructed to take senna as instructed until the fifth bowel movement to decrease risk of impaction following surgery. Patient was instructed if they have not had a bowel movement in 3 days to call our office for reevaluation. 4. H&H: 12.2/37.9. Currently asymptomatic. At this point patient is above the threshold of 10 and we do not need to begin anemia protocol. 5. Physical therapy: Patient states that she did work with physical therapy and things went well. Patient was educated that she will continue to be weightbearing as tolerated with a walker. Patient is to follow anterior hip precautions. 6. Incentive spirometer: Patient was encouraged to use incentive spirometer every hour that they are weak for the first week to exercise lungs and decrease risk of postoperative infection. 7. Patient will follow-up per postoperative instructions. 8. Patient was educated that she will wear her dressing until day 5 postop and then can remove at home. If incision is clean dry and intact can leave open to air. 9. Reactive leukocytosis: Patient's white blood cell count is currently 16.3. Patient is currently asymptomatic and vital signs are afebrile. Patient did receive Decadron intraoperatively. 9. Medicine is on board. Appreciate recommendations for safe and proper discharge planning. 10. Case management is on board appreciate recommendations for safe and proper discharge planning. 11 patient does have follow-up appointment scheduled for 2-week follow-up in office. 12. Patient is okay for discharge as long as medically stable, continues to do well with physical therapy, and pain maintains adequately controlled. 13 disposition: Patient does plan to go home at this time. Patient states that she has help at home. Patient states that her son will be around and she is having a friend come stay with her at her house. Patient states that she does have a ramp going into her house already. Patient states that this time she does feel comfortable with going home. Anterior hip precautions were reviewed with patient. Patient does have outpatient physical therapy scheduled to begin on . Patient states that she does not need aspirin 81 mg or Tylenol as she has been at home. Patient's medications were sent to the pharmacy of [facility] [place] [facility].
--- NOTE | 2024-12-13 12:34 | PCM.DC ---
Discharge Instructions Diet Discharge Diet: No restrictions DC O2, CPAP, BIPAP needs Home O2 Discharge instructions: No Dressing / Incision Discharge Activity: Return to Normal Activity, May Not Drive (Until can walk 100 feet with use of cane and is no longer taking narcotic pain medications.) and Use Walker (Weightbearing as tolerated with walker.) Weight Bearing Status: Weight bearing as tolerated (With walker. Following anterior hip precautions.) Keep extremity elevated above heart level: Left Leg Dressing / Incision Call your doctor if your incision/area has: Continuous Slow Oozing, Increased Pain/ Swelling, Increased Redness, Foul Smelling Discharge and Swelling at the incision site Call your doctor if you observe: Fever of 101 or Higher, Coldness, Increased Pain, Numbness or Tingling, Change in Color, Inability to urinate, Inability to have a bowel movement, Using more than 1 pad per hour, Shortness of breath, Dizziness, Fainting spells, Swelling in the ankles, Chest pain, Prolonged hiccupping, Increased palpitations (irregular heartbeat), Calf discomfort and Uncontrolled pain Remove Dressing in: 5 days (Can remove dressing in 5 days. Can leave open to air as long as incision is clean dry and intact.) Cleanse incision/area with: Soap & Water (Gentle soap and water while showering.) Additional Dressing/Incision Instructions:: Patient was educated not to do any soaking, submerging, pools, hot tubs, bathtubs until 6 weeks postoperatively. Patient was also educated not to do any lotions, salves, oils directly over the incision until 6 weeks postoperatively. Patient was encouraged not to drive any motor vehicles, machinery, or make any important decisions while taking narcotic pain medication. Patient is to follow-up per postoperative instructions. Follow Up Care Test Results: Test results from this visit will be discussed in further detail at your follow-up appointment, if applicable. Discharge Plan Admission Admit Date/Time: 12/12/24 07:17 Attending Provider: Srikanth Pino Primary Care Provider: Mony Parra Consulting Providers: Zaira Elliott Discharge Orders/Prescriptions Prescriptions: New acetaminophen 500 mg Tablet 1,000 mg PO TID Qty: 0 0RF famotidine 20 mg Tablet 20 mg PO DAILY 30 Days Qty: 30 0RF oxycodone 5 mg Tablet 5 - 10 mg PO Q4H PRN PRN (Reason: as needed for pain control) 7 Days Qty: 42 0RF sennosides-docusate sodium [Stimulant Laxative Plus] 8.6-50 mg Tablet 2 tab PO BID 3 Days Qty: 12 0RF Rx Instructions: Take until first bowel movement and then as needed. Continued cholecalciferol (vitamin D3) [Vitamin D3] 25 mcg (1,000 unit) tablet 5,000 unit PO DAILY niacin 500 mg tablet 500 mg PO DAILY atenolol 50 mg tablet 50 mg PO DAILY levothyroxine 75 mcg tablet 75 mcg PO DAILY B-complex with vitamin C Tablet 1 tab PO DAILY calcium carb-mag ox-zinc gluc 333-133-5 mg tablet 1 tab PO DAILY Changed aspirin [Adult Aspirin Regimen] 81 mg tablet,delayed release (DR/EC) 81 mg PO BID 30 Days Qty: 60 0RF Rx Instructions: Take 2 81 mg aspirin until 4 weeks postoperatively. Referrals / Follow Up: Mony Parra MD [[facility]] - Disposition Disposition (needs filled in before D/C Order can be placed): Home, Self Care
--- NOTE | 2024-12-13 15:16 | PHA.DC_ITS ---
Pharmacy [facility] has performed discharge medication reconciliation and counseling for this patient. 1. ACETAMINOPHEN 1000MG PO Q8 2. ASPIRIN 81MG CHANGE TO BID X 4 WEEKS 3. FAMOTIDINE 20MG PO DAILY 4. OXYCODONE 5-10MG PO Q4H PRN PAIN 5. SENNA/DOCUSATE 2T PO BID UNTIL FIRST BM THEN PRN CONSTIPATION The patient's discharge medication list was reviewed for discrepancies and discrepancies were resolved. The patient was counseled on the following discharge medications and changes in medications for homegoing were reviewed. The Reason for Use, instructions for use, and potential side effects were reviewed for all new medications. The patient's questions regarding all of their medications were answered. The patient was able to verbally demonstrate an understanding of their discharge medications. Medications at Discharge Home Medications B-complex with vitamin C 1 tab PO DAILY 11/02/24 atenolol 50 mg tablet 50 mg PO DAILY 11/02/24 calcium 333 mg (carbonate)-magnesium 133 mg (oxide)-zinc 5 mg tablet 1 tab PO DAILY 11/02/24 cholecalciferol (vitamin D3) 25 mcg (1,000 unit) tablet (Vitamin D3) 5,000 unit PO DAILY 11/02/24 levothyroxine 75 mcg tablet 75 mcg PO DAILY disorder of thyroid gland 11/02/24 niacin 500 mg tablet 500 mg PO DAILY 11/02/24 acetaminophen 500 mg tablet 1,000 mg (2 x 500 mg) PO TID #0 tabs 12/13/24 aspirin 81 mg tablet,delayed release (Adult Aspirin Regimen) 81 mg PO BID 30 days #60 tabs 12/13/24 famotidine 20 mg tablet 20 mg PO DAILY 30 days #30 tabs 12/13/24 oxycodone 5 mg tablet 5 - 10 mg (1 - 2 x 5 mg) PO Q4H PRN PRN as needed for pain control 7 days #42 tabs 12/13/24 sennosides 8.6 mg-docusate sodium 50 mg tablet (Stimulant Laxative Plus) 2 tab PO BID 3 days #12 tabs 12/13/24
--- NOTE | 2024-12-13 15:25 | NURSING ---
Went to get pt ready for d/c and she wanted to go to the bathroom. This RN got her up to walk to the bathroom from her chair and she was having a lot of pain and difficulty do this task. I had to call in a LAP HAND TOOL to help me walk pt to bathroom since we only made it half way. After pt was sat on toilet I went and got PT/OT to revaluate her and see if they thought she was safe to go home. After PT/OT walked her they suggested another day here. Pt and family agreed. Dorina was made aware and she canceled the d/c order.
[2024-12-14 03:42] VITALS: BP 155/80; PULSE 64; RESP 16; TEMP 37.1; O2SAT 92
[2024-12-14] MEDS: oxyCODONE 5 MG Tablet PO ×2 (03:47→10:36)
[2024-12-14] MEDS: Levothyroxine 75 MCG Tablet PO (05:17)
[2024-12-14] MEDS: Acetaminophen 500 MG Tablet 1000 MG PO ×2 (05:17→14:08)
--- NOTE | 2024-12-14 07:13 | PCM.PN.ORT ---
Subjective Subjective Patient appeared to be comfortable in bed. Patient states that she is feeling better today and feels like she can move her leg a little bit better today. Patient states that she still did not sleep well last night. Patient states that she still is having the pain in her right rib area that is the chronic pain she is dealt with for some time. Patient states at this time she does not want to think not having to go to a nursing facility and would like to go home still. Patient was educated that depending on how her evaluation goes with physical therapy we will be looking at home versus potential rehab facility. Patient denies any nausea, vomiting, dizziness. Patient denies any shortness of breath, chest pain, calf pain. Patient denies any fever, chills, signs of infection. Patient denies any adverse events overnight. Objective Data Objective Data Vital Signs: Vital Signs Temp Pulse Resp BP Pulse Ox O2 Del Method O2 Flow Rate 98.7 F 64 16 155/80 H 92 Room Air 4 12/14/24 03:42 12/14/24 03:42 12/14/24 03:42 12/14/24 03:42 12/14/24 03:42 12/14/24 03:51 12/12/24 15:30 Oxygen Flow Rate (L/min) 4 Oxygen Delivery Method Room Air Weight: 73.4 kg Body Mass Index (BMI) 26.9 Intake & Output: Intake and Output for Last 24 Hours 12/12/24 12/13/24 12/14/24 23:59 23:59 23:59 Intake Total 2892 / 2892 1690 / 1690 Balance 2892 / 2892 1690 / 1690 Lab / Micro Data 12/13/24 05:19 12/13/24 05:19 Labs: Laboratory Results - last 24 hr 12/13/24 05:19: Differential Comment SCANNED, Diff Path Review May foll, Platelet Estimate ADEQUATE, RBC Morphology NORM C+C Micro: Microbiology 11/08/24 12:16 Swab (Method) Nasal Screen MRSA/MSSA - Final Physical Exam Narrative 1. JUSTA hose in place bilaterally. 2. SCDs in place bilaterally. 3. Dressings clean dry and intact. 4. Left hip is soft and supple. 5. Dorsiflexion and plantarflexion are performed without pain or restriction. 6. Sensation intact light touch. 7. Neurovascularly intact. 8. Negative Homans bilaterally. Const alert, oriented x3 and no apparent distress Assessment & Plan Assessment/Plan (1) Status post total hip replacement, left: PLAN: Plan Status post left total hip replacement day 2. 1. DVT prophylaxis: Patient will be on 81 mg aspirin 2 times daily for 4 weeks postoperatively. Patient will also be in JUSTA hose for 2 weeks postoperatively. 2. Pain medications: Patient will be on Tylenol 1000 mg every 8 hours as well as oxycodone as needed for pain control. Patient is not to be on any NSAIDs due to decreased GFR. Patient was educated while on meloxicam do not take any other anti-inflammatory medications. OARRS report was reviewed and checked in office today. The risk of abuse potential for narcotic pain medication was discussed and reviewed. Patient was advised not to drive a motor vehicle or operate heavy equipment while taking narcotic pain medication. 3. Constipation: Patient was instructed to take senna as instructed until the fifth bowel movement to decrease risk of impaction following surgery. Patient was instructed if they have not had a bowel movement in 3 days to call our office for reevaluation. 4. H&H: 12.2/37.9 on 12/14/2024. Currently asymptomatic. At this point patient is above the threshold of 10 and we do not need to begin anemia protocol. Labs have been drawn waiting for labs to be resulted and we will review. 5. Physical therapy: Patient states that she did work with physical therapy and things went well. Patient was educated that she will continue to be weightbearing as tolerated with a walker. Patient is to follow anterior hip precautions. Patient was intending on leaving yesterday when she went to leave she felt that her leg was very stiff and she could not move it. Physical therapy evaluated her and stated that they believed she should stay another day. Patient stated that after her first visit with physical therapy yesterday she just sat in her chair for hours and did not move and think she became very stiff. Patient was educated that she needs to move at least 1 time per hour that she is awake today. Patient was educated that if she continues to do poorly with physical therapy we we will begin having to look at rehab facilities. 6. Incentive spirometer: Patient was encouraged to use incentive spirometer every hour that they are weak for the first week to exercise lungs and decrease risk of postoperative infection. 7. Patient will follow-up per postoperative instructions. 8. Patient was educated that she will wear her dressing until day 5 postop and then can remove at home. If incision is clean dry and intact can leave open to air. 9. Reactive leukocytosis: Patient's white blood cell count was 16.3 on 12/13/2024. Patient is currently asymptomatic and vital signs are afebrile. Patient did receive Decadron intraoperatively. Labs are not yet resulted we will review. 9. Medicine is on board. Appreciate recommendations for safe and proper discharge planning. 10. Case management is on board appreciate recommendations for safe and proper discharge planning. 11 patient does have follow-up appointment scheduled for 2-week follow-up in office. 12. Patient was still complaining pain of her right sided rib pain. Patient states that it feels like it always does and that it was chronic. This was discussed with hospitalist. At this time due to this being chronic pain patient was educated to follow-up with her primary care provider following discharge from the hospital. 12. Patient is okay for discharge as long as medically stable, continues to do well with physical therapy, and pain maintains adequately controlled. 13 disposition: The patient states that she does still plan to go home at this time and would like to avoid a rehab facility if possible. Patient states that she does have help at home from a friend and stating that her son will be around. Patient states that she does have a ramp going into her house. Patient states that she felt like she could not move her leg a little bit better. Patient was educated that if she does not do well with physical therapy today we will begin looking at potential placement for some rehab before going home. I appreciate physical therapy, medicine, and case management recommendations for safe and proper discharge planning. Anterior hip precautions were reviewed with the patient. Patient does have outpatient physical therapy scheduled to begin on . Patient's medications were already sent to pharmacy of choice which is [facility] due to planned discharge yesterday. We will wait on labs and review as well as physical therapy evaluation for discharge planning.
[2024-12-14 07:27] LABS: Hematocrit 34.1 % (37-47); Hemoglobin 11.4 g/dL (12.0-15.0); Mean Corp Hgb Conc 33.4 g/dL (32-36); Mean Corpuscular Hgb 31.5 pg (27.0-32.0); Mean Corpuscular Volume 94.2 fL (81-99); Mean Platelet Vol. 9.8 fl (6.2-12.0); Platelet Count 242 K/mm3 (150-450); RBC Distribution Width CV 13.2 % (11.6-14.6); RBC Distribution Width SD 45.1 fl (35.1-43.9); Red Blood Count 3.62 M/mm3 (4.2-5.4); White Blood Count 14.1 K/mm3 (4.4-11.0)
[2024-12-14 07:43] VITALS: O2SAT 95
[2024-12-14 07:55] VITALS: BP 129/78; PULSE 64; RESP 14; TEMP 36.8; O2SAT 97
[2024-12-14] MEDS: Aspirin 81 MG TAB.CHEW PO (08:07)
[2024-12-14] MEDS: Senna/Docusate Sodium 1 Tablet 2 TABLET PO (08:07)
[2024-12-14] MEDS: Niacin SA 500 MG Tablet PO (08:07)
[2024-12-14] MEDS: Cholecalciferol (Vit D3) 125 MCG CAPSULE (5,000 UNITS) PO (08:08)
[2024-12-14] MEDS: Atenolol 50 MG Tablet PO (08:08)
[2024-12-14] MEDS: Famotidine 20 MG Tablet PO (08:08)
--- NOTE | 2024-12-14 09:53 | PN_ITS ---
Subjective Subjective Patient seen and examined. She complained today of the episodic right flank pain which she says has been going on for years. It was not present at time of review. She had just worked with physical therapy. Review of systems is otherwise negative. She has remained hemodynamically stable. She is on room air. Objective Data Objective Data Vital Signs: Vital Signs Temp Pulse Resp BP Pulse Ox O2 Del Method O2 Flow Rate 98.3 F 64 14 129/78 H 97 Room Air 4 12/14/24 07:55 12/14/24 07:55 12/14/24 07:55 12/14/24 07:55 12/14/24 07:55 12/14/24 08:03 12/12/24 15:30 Oxygen Flow Rate (L/min) 4 Oxygen Delivery Method Room Air Weight: 161 lb 13.109 oz Body Mass Index (BMI) 26.9 Intake & Output: Intake and Output for Last 24 Hours 12/12/24 12/13/24 12/14/24 23:59 23:59 23:59 Intake Total 2892 / 2892 1690 / 1690 Balance 2892 / 2892 1690 / 1690 Lab / Micro Data 12/14/24 06:31 12/13/24 05:19 Labs: Laboratory Results - last 24 hr 12/14/24 06:31: WBC 14.1 H, RBC 3.62 L, Hgb 11.4 L, Hct 34.1 L, MCV 94.2, MCH 31.5, MCHC 33.4, RDW Std Deviation 45.1 H, RDW Coeff of Onur 13.2, Plt Count 242, MPV 9.8 Micro: Microbiology 11/08/24 12:16 Swab (Method) Nasal Screen MRSA/MSSA - Final Physical Exam Const alert, oriented x3, no apparent distress and average body habitus General Appearance: cooperative and comfortable HEENT normocephalic, head/scalp atraumatic, hearing grossly normal bilaterally, nasal mucous membranes and turbinates normal, moist oral mucous membranes, oropharynx normal and gingiva normal Eyes PERRL, EOMs intact bilaterally and conjunctivae normal Neck full ROM, no lymphadenopathy, supple and no JVD Lymph Lymphatic: no lymphadenopathy noted Chest inspection of chest normal Resp normal respiratory effort, normal air movement, no use of accessory muscles and clear to auscultation bilaterally Cardio regular rate, regular rhythm, S1 normal heart sound, S2 normal heart sound, no murmurs and peripheral pulses 2+ throughout GI normal to inspection, nondistended, normoactive bowel sounds, soft to palpation, non-tender and non-distended Back/Spine normal ROM Extremity normal capillary refill, no clubbing, cyanosis or edema and no calf tenderness Extremity Narrative: intact dressing over left hip General Extremity: no tenderness to palpation of joints or extremities Skin no rashes or lesions noted General Skin Exam: no breakdown Neuro CN's II-XII intact bilaterally, moves all extremities and no focal motor deficits Speech: speech normal Motor Exam: general weakness Psych mental status grossly normal, thought process normal and cooperative Appearance: appropriate Assessment & Plan Assessment/Plan (1) Status post total hip replacement, left: (2) Hypertension: PLAN: Plan #Left hip osteoarthritis * s/p left total hip replacement. * Today is POD 2. * PT/OT on board. Fall precautions * pain management as per primary service. * #Hypertension * on atenolol. IV hydralazine prn. * #Hyperlipidemia: #Hypothyroidism: on synthroid DVT prophylaxis: Aspirin 81mg bid per primary service. Charges/Coding Visit Charges Inpatient E&M: 28433 Subs Hosp L2
--- NOTE | 2024-12-14 11:08 | PN.ORTHO_ITS ---
Subjective Subjective The patient was sitting in bedside chair upon examination. Patient denies any chest pain, shortness of breath, dizziness, lightheadedness, nausea or vomiting, or calf pain. Pain is controlled on medications. No adverse overnight events. Patient did work with physical therapy this morning and was able to walk 50 feet. Yesterday patient was planned to be discharged home but after sitting for 4 hours when she got up to leave she had very difficult time with walking. Physical therapy reassessed her and recommended additional stay. Patient states she wants to try to go home and prefers not to go to any rehab center.. Objective Data Objective Data Vital Signs: Vital Signs Temp Pulse Resp BP Pulse Ox O2 Del Method O2 Flow Rate 98.3 F 64 14 129/78 H 97 Room Air 4 12/14/24 07:55 12/14/24 07:55 12/14/24 07:55 12/14/24 07:55 12/14/24 07:55 12/14/24 08:03 12/12/24 15:30 Oxygen Flow Rate (L/min) 4 Oxygen Delivery Method Room Air Weight: 73.4 kg Body Mass Index (BMI) 26.9 Intake & Output: Intake and Output for Last 24 Hours 12/12/24 12/13/24 12/14/24 23:59 23:59 23:59 Intake Total 2892 / 2892 1690 / 1690 Balance 2892 / 2892 1690 / 1690 Lab / Micro Data 12/14/24 06:31 12/13/24 05:19 Labs: Laboratory Results - last 24 hr 12/14/24 06:31: WBC 14.1 H, RBC 3.62 L, Hgb 11.4 L, Hct 34.1 L, MCV 94.2, MCH 31.5, MCHC 33.4, RDW Std Deviation 45.1 H, RDW Coeff of Onur 13.2, Plt Count 242, MPV 9.8 Micro: Microbiology 11/08/24 12:16 Swab (Method) Nasal Screen MRSA/MSSA - Final Physical Exam Narrative Vital signs stable and afebrile. Left thigh is soft and supple Patient is able to plantarflex and dorsiflex actively. Sensation is intact to light touch to saphenous, sural, superficial and deep peroneal, and tibial distribution. Dressing is clean dry and intact. Negative Homans bilaterally, negative signs and symptoms of DVT. Const alert, oriented x3 and no apparent distress Assessment & Plan Assessment/Plan (1) Status post total hip replacement, left: PLAN: Plan Status post left total hip replacement day 2. 1. DVT prophylaxis: Patient will be on 81 mg aspirin 2 times daily for 4 weeks postoperatively. Patient will also be in JUSTA hose for 2 weeks postoperatively. 2. Pain medications: Patient will be on Tylenol 1000 mg every 8 hours as well as oxycodone as needed for pain control. Patient is not to be on any NSAIDs due to decreased GFR. Patient was educated while on meloxicam do not take any other anti-inflammatory medications. OARRS report was reviewed and checked in office today. The risk of abuse potential for narcotic pain medication was discussed and reviewed. Patient was advised not to drive a motor vehicle or operate heavy equipment while taking narcotic pain medication. 3. Constipation: Patient was instructed to take senna as instructed until the fifth bowel movement to decrease risk of impaction following surgery. Patient was instructed if they have not had a bowel movement in 3 days to call our office for reevaluation. 4. H&H: 12.2/37.9 on 12/14/2024. Currently asymptomatic. At this point patient is above the threshold of 10 and we do not need to begin anemia protocol. Labs have been drawn waiting for labs to be resulted and we will review. 5. Physical therapy: Patient states that she did work with physical therapy and things went well. Patient was educated that she will continue to be weightbearing as tolerated with a walker. I recommended to the patient it is very important to make sure she is getting up and moving. I would like her to follow the 1 hour rule at home in which she gets up and moves for 3-5 minutes every hour while awake. She did voiced understanding. 6. Incentive spirometer: Patient was encouraged to use incentive spirometer every hour that they are weak for the first week to exercise lungs and decrease risk of postoperative infection. 7. Patient will follow-up per postoperative instructions. 8. Patient was educated that she will wear her dressing until day 5 postop and then can remove at home. If incision is clean dry and intact can leave open to air. 9. Reactive leukocytosis: Patient's white blood cell count was 16.3 on 12/13/2024. Currently 14.1 and trending down. Patient is currently asymptomatic and vital signs are afebrile. Patient did receive Decadron intraoperatively. 10. Continue postoperative medical management per medicine 11. Case management is on board appreciate recommendations for safe and proper discharge planning. 12. Disposition: Case was discussed with care management team and physical therapy. Patient was able to walk 50 feet this morning. Plan will be for physical therapy to reassess after lunch and determine if she is safe and appropriate to go home. Patient is wishing to go home and avoid going to any rehab or retirement facility. She does feel better today than yesterday afternoon. Her pain has been controlled. She does have thigh soreness. Recommended gentle massage on the thigh avoiding the incision. Physical therapy will let orthopedics and care management team know of their recommendations. Once we are able to determine appropriate discharge planning orthopedics can place discharge if appropriate for home today. Previous medications from other physician review assistant has been taking care of and sent to pharmacy. Continue above medications as prescribed. If patient does go home today she is to contact our office with any concerns or questions. This dictation was created using voice recognition software. Phonetic and/or grammatical errors may exist.
[2024-12-14 13:50] VITALS: BP 136/79; PULSE 66; RESP 18; TEMP 36.5; O2SAT 100
--- NOTE | 2024-12-14 14:17 | CASEMGMT ---
Spoke with ARROYO, pt did well with therapy and safe to dc home. Updated Valentín MENDOZA via backline.
--- NOTE | 2024-12-14 16:05 | NURSING ---
All documentation by nursing tech Doris Sosa reviewed by nursing teacher Winter GALANN, RN.
== END 2024-12-14 14:42 | disposition home or self-care (01) ==
LOC: SDC 15:51 → MS3 15:51
PROVIDERS: Anesthesiology; Admitting Provider Specialist; PCP Internal Medicine; Referring Provider Specialist; Visit Provider Specialist
PROC: (CPT 27284; principal; 2024-12-12 10:50)
DX: M16.12 Unilateral primary osteoarthritis, left hip (principal); H91.90 Unspecified hearing loss, unspecified ear; E03.9 Hypothyroidism, unspecified; E78.00 Pure hypercholesterolemia, unspecified; Z79.890 Hormone replacement therapy; Z79.82 Long term (current) use of aspirin; I10 Essential (primary) hypertension; Z79.899 Other long term (current) drug therapy
CPT/HCPCS: 27130; 01214; 36415; 73502; 76000; 80048; 82040; 82962; 83735; 84443; 85025; 85027; 87081; 88305; 88311; 93005; 94668; 96361; 96365; 96366; 97110; 97116; 97162; 97166; 97530; 97535; 99221; C1776; G0378; J3475